=== PATIENT | female | born 1975 | race Caucasian/White ===

== ENCOUNTER → 2020-09-21 15:20 | Outpatient (CLI) | payer OTHER, SELFPAY ==
[2015-04-20 11:37] VITALS: BMI 35.6
[2020-09-24 20:19] LABS: HPV APTIMA, High Risk Negative (Negative)
== END ==
PROVIDERS: PCP Physician Assistant; Visit Provider Student in an Organized Health Care Education/Training Program
DX: Z12.4 Encounter for screening for malignant neoplasm of cervix (principal)
CPT/HCPCS: 87624; 88175; G0145

== ENCOUNTER 2023-05-07 09:36 | Day surgery (SDC) | payer OTHER, SELFPAY ==
--- NOTE | 2023-05-07 | IMM_PTH ---
PATIENT: JOLEEN BURNETTE LOC: EN U#:[id number] AGE/SX: 47/F ROOM: RE05/07/[address]: Dr. Chelsy Peck MD : 1975 BED: DIS: 05/07/2023 SPEC #: [id number] RECD: 05/09/23 14:56 STATUS: DON REQ #: [id number] RICK: 05/07/23 00:[address]: Chelsy Peck DEPT: IMMUNOHISTOCHEMISTRY RECD BY: Alcira Frost ENTERED: 05/09/23 14:57 SP TYPE: IMMUNO OTHR DR: Sloane Hernández PA-C Tissues: Sigmoid colon biopsy Procedures: SMA (add) DESMIN (add) KI-67 (add) P53 (add) Vimentin (add) SMM (add) Pankeratin (initial) S-100 (add) PHYSICIAN & INSTITUTION [place] [address] SPECIMEN INFORMATION: Tissue Source: Sigmoid polyp Clinical Info: Screening Specimen Number: [id number] CPT code: 06764, 18828 x7 METHODOLOGY: Deparaffinized sections of prefer/formalin-fixed tissue or PAP/DQ stained slides are incubated with monoclonal/polyclonal antibodies/oligonucleotide probes. Localization is made via biotin free immunoperoxidase method. Appropriate controls are performed and reacted as expected. Results on target cell population are indicated in the following table: RESULTS: ANTIBODY / CLONE RESULT AE1-3 (AE1/AE3/PCK26) negative Vimentin (V9) negative Actin (1A4) positive Myosin (simms1) positive Desmin (CE-R-11) positive S-100 (4C4.9) negative P53 (DO-7) negative (null pattern) Ki-67 (30-9) negative These tests were developed and their performance characteristics determined by [facility]. They may not have been cleared or approved by the U.S. Food and Drug Administration. The FDA has determined that such clearance or approval is not necessary. The above immunohistochemical/dualISH markers are ordered and reviewed by the Pathologist. INTERPRETATION: Sigmoid polyp, biopsy: Mucosal leiomyoma AM/bl 05/10/23
--- NOTE | 2023-05-07 10:03 | HP.PCM_ITS ---
[facility] - General General Date of Service: 05/07/23 HPI Narrative JOLEEN BURNETTE, is a 47 F who presents for screening colonoscopy. Patient's never had previous colonoscopy. Patient denies any immediate family history of colon cancer. Patient denies any chronic abdominal pain/nausea/vomiting. Patient is on omeprazole 40 mg p.o. daily for burping otherwise denies other reflux symptoms. Patient states initially did work better than it does currently. Patient was initially put on during the summer which she took to occasionally for the last 2 weeks she has been taking it more regularly. Patient has bowel movements about every other day denies any blood. [facility] Medical History (Updated 05/02/23 @ 09:45 by Isabel Yousif) Acid reflux Anxiety and depression Depression Former smoker Insomnia, unspecified Thyroid disease Home Medications aluminum chloride 20 % topical solution (Drysol Dab-O-Matic) 1 applic topical QWEEK PRN excessive sweating 04/30/23 [History Last Taken Unknown] bupropion HCl 100 mg tablet 150 mg PO BID 04/30/23 [History Last Taken Unknown] epinephrine 0.3 mg/0.3 mL injection, auto-injector 0.3 mg IM ONCE PRN anaphylaxis 04/30/23 [History Last Taken Unknown] omeprazole 40 mg capsule,delayed release 40 mg PO DAILY PRN GERD 04/30/23 [History Last Taken Unknown] testosterone 10 mg/0.5 gram/actuation transdermal gel pump 1 pump transdermal QAM 04/30/23 [History Last Taken Unknown] thyroid (pork) 15 mg tablet ([employer] Thyroid) 15 mg PO DAILY 04/30/23 [History Last Taken Unknown] Allergy/AdvReac Type Severity Reaction Status Date / Time bee venom protein (honey bee) Allergy Severe Anaphylaxis Verified 05/02/23 09:36 hydrocodone bitartrate AdvReac Vomiting Verified 05/02/23 09:36 [From Vicodin] Family History (Updated 04/30/23 @ 11:56 by Cristina Perez) Father Cancer Surgical History (Updated 05/02/23 @ 09:45 by Isabel Yousif) History of release of tendon Hx of abdominal hysterectomy Hx of breast reduction, elective Hx of section Hx of left knee surgery Social History (Updated 04/30/23 @ 11:57 by Cristina Perez) current occupational status: employed Smoking Status: Former smoker alcohol intake: current alcohol intake frequency: holidays/special occasions only Past Medical/Surgical History Planned Operation Planned Operative Procedure/s: CSCOPE S.O.S: No Previous Hospitalizations/Surgeries HX Hospitalizations: No HX of Surgeries: L FOOT X2 HYSTERECTOMY PANKAJ BREAST REDUCTION T&A Any Problems With Anesthesia: No You/Your Family Experience Fever (Hyperthermia) With Anes: No Cholinesterase deficiency: No Cardiovascular Hx Chest Pain within Last 2 months: No Hx of Irregular Heartbeat and/or Afib: No Hx Heart Attack: No Hx Congestive Heart Failure: No Hx Rheumatic Fever: No Hx Hypertension: No Hx Internal Defibrillator: No Hx Pacemaker: No Hx Cardiac Catheterization: No Hx Cardiac Surgery/Stents/Etc.: No Hx Stress Test: No Hx Pain in Legs when Walking/Leg Cramps: No Respiratory Chronic Cough: No HX of Shortness of Breath: No Hoarseness: No Hx Chronic Obstructive Pulmonary Disease (COPD): No Hx Asthma: No Hx Emphysema: No Hx Sleep Apnea: No Hx Respiratory Tract Infection/Cold (presently): No Do You Snore Loudly (louder than talking or can be heard): No Do You Often Feel Tired/ Fatigued/ Sleepy Dring Daytime?: No Has Anyone Observed You Stop Breathing During Sleep?: No Result (for STOP score): Negative Hx Smoking: Yes Smoking Status: Former smoker Gastrointestinal Hx Gastrointestinal Disorders: No Hx Gastrointestinal Bleed: No Hx Ulcer: No Hx Hiatal Hernia: No Difficulty Chewing/Swallowing: No Special diet followed at home: No Hx Unplanned Weight Loss of 20#: No HX Unplanned Weight Gain of 20#: No Neurological Hx Seizures: No HX Syncope/Blackout Spells/Unconsciousness: No Hx Transient Ischemic Attacks (TIA): No Hx Multiple Sclerosis: No Hx Parkinson's Disease: No Hx Head/Neck Injury: No Hx Headaches: Yes Hx Back Injury/Pain: No Recent Onset of Speech Difficulty: No Restless Legs: No Does patient have nerve stimulator: No Blood Disorder Hx Leukemia: No Bleeding Tendencies: No Hx Deep Vein Thrombosis: No Hx High Cholesterol: No Blood Transmitted Disease: No Hx Hepatitis: No Hx Cirrhosis: No Hx Anemia: No Hx Blood Disorders: No Reproduction Is Patient Lactating: No Hx Hysterectomy: Yes Hx Tubal Ligation: No Are You Post Menopause: No Genitourinary Hx Renal Disease: Yes (KIDNEY STONES) Musculoskeletal Hx Arthritis: No Hx Rheumatoid Arthritis: No Hx Gout: No Recent Onset of an Orthopedic Problem: Yes (L KNEE, FELL & DISLOCATED) Endocrine Hx Diabetes: No Thyroid Disease: No Hx Steroid Therapy: No Psycho/Social Hx Substance Use: No Hx Alcohol Use: No Hx Anxiety: No Hx Depression: No Mental Illness: No Hx Dementia: No Miscellaneous Hx Cancer: No Recent Exposure to Contagious Disease: No Hx of C-Diff: No Any Loose Teeth: No Allergies bee venom protein (honey bee) Allergy (Severe, Verified 05/02/23 09:36) Anaphylaxis ALL BEES,HORNETS hydrocodone bitartrate [From Vicodin] Adverse Reaction (Verified 05/02/23 09:36) Vomiting Discharge Is Pt Admitted From a Half-Way, or a Care Home: No After D/C, Where Do you Plan to Go: Return Home Physical Exam Const alert, oriented x3 and no apparent distress HEENT normocephalic and head/scalp atraumatic Resp normal respiratory effort Cardio regular rate GI soft to palpation and non-tender; Negative for non-distended Palpation: Negative for guarding Extremity no clubbing, cyanosis or edema Skin no rashes or lesions noted Neuro CN's II-XII intact bilaterally Psych mental status grossly normal Assessment & Plan Assessment/Plan (1) Encounter for screening for malignant neoplasm of colon: Surgery Risks - Colonoscopy I discussed with the patient the risks of the procedure: Yes Risks Include but are not Limited To: Risks include but are not limited to: Bleeding, perforation requiring further surgery, inability to complete colonoscopy requiring barium enema.
[2023-05-07 10:06] VITALS: BP 115/70; PULSE 76; RESP 12; TEMP 36.6; O2SAT 99; BMI 29.5
[2023-05-07] MEDS: Lactated Ringers 1,000 ML 15 ML IV (10:15)
--- NOTE | 2023-05-07 11:00 | COLBX_PTH ---
PATIENT: JOLEEN BURNETTE LOC: EN U#:[id number] AGE/SX: 47/F ROOM: RE05/07/[address]: Dr. Chelsy Peck MD : 1975 BED: DIS: 05/07/2023 SPEC #: [id number] RECD: 05/07/23 14:01 STATUS: DON REIsma #: [id number] RICK: 05/07/23 11:[address]: Chelsy Peck DEPT: SURGICAL PATHOLOGY RECD BY: Roberta Woo ENTERED: 05/08/23 09:04 SP TYPE: COLON BX OTHR DR: Sloane Hernández PA-C Tissues: Sigmoid colon biopsy Procedures: Surgery Specimen Level IV HEADER OPERATION: Colonoscopy - open access, biopsy PRE-OP DIAGNOSIS: Screening TISSUE SUBMITTED: Sigmoid polyp biopsy MICROSCOPIC DIAGNOSIS Sigmoid colon polyp, biopsy: Mucosal leiomyoma. See comment. AM:tyrone 05/09/2023 COMMENT Immunohistochemistry ([id number]) supports the above diagnosis. Case has been reviewed in consultation with Dr. Mirza who concurs with the above diagnosis. IDC:SAULO MICROSCOPIC DESCRIPTION Slides are reviewed. GROSS DESCRIPTION Received in fixative is one container labeled with the patient's name and designated sigmoid polyp biopsy. The specimen consists of one irregular fragment of light salvador soft tissue that measures 0.3 x 0.2 x 0.1 cm. The specimen is totally submitted in one cassette. / SAULO:tyrone 05/08/2023 TC:3 CPT: 48965
[2023-05-07 11:05] VITALS: BP 115/70; BP 87/47; PULSE 72; RESP 16; TEMP 36.5; O2SAT 100
--- NOTE | 2023-05-07 11:07 | OP.CCLET_ITS ---
05/07/2023 [facility] Re : Colonoscopy procedure for Rehana Hernández This procedure was performed on Sunday, May 07, 2023. My impressions and recommendations are as follows: Impressions : - Hemorrhoids found on perianal exam. - Non-bleeding internal hemorrhoids. - One less than 5 mm polyp in the sigmoid colon, removed with a cold biopsy forceps. Resected and retrieved. - The examination was otherwise normal. - Diverticulosis in the sigmoid colon and in the ascending colon. Recommendations : - Discharge patient to home. - High fiber diet. - Continue present medications. - Await pathology results. - Repeat colonoscopy in 5 years for surveillance based on pathology results. My findings are described in the full procedure note, which is enclosed. If I can be of further assistance, please feel free to contact me at Doctor phone number(s): , Work: . Sincerely, MD Chelsy Bahena MD 05/07/2023 11:06:49 AM This report has been signed electronically.
--- NOTE | 2023-05-07 11:07 | OP.COLON_ITS ---
Patient Name: Rehana Yepez Procedure Date: 05/07/2023 10:31 AM Date of : 1975 Age: 47 Procedure: Colonoscopy Indications: Screening for colorectal malignant neoplasm Providers: Chelsy Peck MD Referring MD: Chelsy Peck MD Medicines: Monitored Anesthesia Care Patient Profile: This is a 47 year old female. Last Colonoscopy: none. The patient's first colonoscopy is today. Complications: No immediate complications. Procedure: Pre-Anesthesia Assessment: - Prior to the procedure, a History and Physical was performed, and patient medications and allergies were reviewed. The patient's tolerance of previous anesthesia was also reviewed. The risks and benefits of the procedure and the sedation options and risks were discussed with the patient. All questions were answered, and informed consent was obtained. Prior Anticoagulants: The patient has taken no anticoagulant or antiplatelet agents. ASA Grade Assessment: Per anesthesia. After reviewing the risks and benefits, the patient was deemed in satisfactory condition to undergo the procedure. After I obtained informed consent, the scope was passed under direct vision. Throughout the procedure, the patient's blood pressure, pulse, and oxygen saturations were monitored continuously. The Colonoscope was introduced through the anus and advanced to the cecum, identified by appendiceal orifice and ileocecal valve. The colonoscopy was technically difficult and complex due to a tortuous colon. The patient tolerated the procedure well. The quality of the bowel preparation was good. Scope In: 10:41:01 AM Scope Withdrawal Time 0 hours 10 minutes 31 seconds Scope Out: 11:00:55 AM Total Procedure Duration Time 0 hours 19 minutes 54 seconds Findings: Hemorrhoids were found on perianal exam. Non-bleeding internal hemorrhoids were found. The hemorrhoids were Grade I (internal hemorrhoids that do not prolapse). A less than 5 mm polyp was found in the sigmoid colon. The polyp was sessile. The polyp was removed with a cold biopsy forceps. Resection and retrieval were complete. The exam was otherwise without abnormality. Scattered small-mouthed diverticula were found in the sigmoid colon and ascending colon. Impression: - Hemorrhoids found on perianal exam. - Non-bleeding internal hemorrhoids. - One less than 5 mm polyp in the sigmoid colon, removed with a cold biopsy forceps. Resected and retrieved. - The examination was otherwise normal. - Diverticulosis in the sigmoid colon and in the ascending colon. Recommendation: - Discharge patient to home. - High fiber diet. - Continue present medications. - Await pathology results. - Repeat colonoscopy in 5 years for surveillance based on pathology results. Procedure Code(s): --- Professional --- 75246, PT, Colonoscopy, flexible; with biopsy, single or multiple Diagnosis Code(s): --- Professional --- Z12.11, Encounter for screening for malignant neoplasm of colon K64.0, First degree hemorrhoids D12.5, Benign neoplasm of sigmoid colon K57.30, Diverticulosis of large intestine without perforation or abscess without bleeding CPT copyright 2021 [employer]. All rights reserved. The codes documented in this report are preliminary and upon massotherapist review may be revised to meet current compliance requirements. MD Chelsy Bahena MD 05/07/2023 11:06:49 AM This report has been signed electronically. Number of Addenda: 0 Note Initiated On: 05/07/2023 10:31 AM
[2023-05-07 11:10] VITALS: BP 115/70; BP 91/54; PULSE 65; RESP 16; O2SAT 100
[2023-05-07 11:15] VITALS: BP 115/70; BP 98/61; PULSE 65; RESP 16; O2SAT 100
[2023-05-07 11:20] VITALS: BP 115/70; BP 120/89; PULSE 72; RESP 16; TEMP 36.6; O2SAT 100
[2023-05-07 11:54] VITALS: BP 115/70
== END 2023-05-07 12:01 | disposition home or self-care (01) ==
LOC: EN 09:38 → AC 09:39
PROVIDERS: PCP Family Medicine; Referring Provider Family Medicine; Visit Provider Surgery
PROC: 0DJD8ZZ Inspection of Lower Intestinal Tract, Via Natural or Artificial Opening Endoscopic (ICD-10-PCS; CPT 45378; principal; 2023-05-07 10:55)
DX: Z12.11 Encounter for screening for malignant neoplasm of colon (principal); K57.30 Diverticulosis of large intestine without perforation or abscess without bleeding; Z87.891 Personal history of nicotine dependence; K64.0 First degree hemorrhoids; K64.4 Residual hemorrhoidal skin tags; D12.5 Benign neoplasm of sigmoid colon; K21.9 Gastro-esophageal reflux disease without esophagitis; Z79.899 Other long term (current) drug therapy; E07.9 Disorder of thyroid, unspecified; Z79.890 Hormone replacement therapy; F32.A Depression, unspecified
CPT/HCPCS: 45380; 88305; 88341; 88342; J7120; J2405

== ENCOUNTER → 2023-07-20 | Outpatient (CLI) | payer OTHER, SELFPAY ==
--- NOTE | 2023-07-20 07:27 | US_ITS ---
STUDY: ABDOMINAL ULTRASOUND - RIGHT UPPER QUADRANT REASON FOR VISIT: Female, 47 years old . Several month history of right upper quadrant pain. TECHNIQUE: Ultrasound evaluation of the right upper quadrant was performed with real-time and static michelle-scale imaging. TECHNICAL QUALITY: Adequate. COMPARISON: None. FINDINGS: Liver: The liver measures 14.6 cm. There is normal echogenicity of the liver. The bile ducts are within normal limits. There is hepatic color flow. The direction of portal flow is hepatopetal. There is no demonstrated mass lesion. Gallbladder: Normal distended gallbladder. The gallbladder wall measures 2 mm. There is a negative sonographic Jiang''s sign. There is no pericholecystic fluid. There are no gallstones. Common Bile Duct (C.B.D.): The common bile duct measures 6 mm. Pancreas: Normal size of the head, body and tail of the pancreas. There is normal echogenicity of the pancreas. There is no demonstrated pancreatic mass or cyst. Right Kidney: Normal size of the right kidney. The right kidney measures 10.6 cm x 5.5 cm x 5.7 cm. Normal renal cortex. The right cortex measures 1.6 cm. There is no demonstrated renal mass or cyst. There is no right hydronephrosis. US/Abdomen Limited IMPRESSION: Normal right upper quadrant ultrasound examination. Electronically Signed: Rory Moise MD at 9:58 EST ,
--- OUTSIDE RECORDS SUMMARY | 2023-07-20 07:50 | XMS RPT_ITS | CCD ---
Author Name Unknown Address [email or web address] [place] [address] Organization [facility] Care Team Providers Care Trimming Machine Operator Name Role Phone Juju Bonilla Primary Care Provider [phone] Anatoliy Ponce Primary Care Provider Anatoliy Hernández PA-C Primary Care Provider [phone] IRENE BUTTONHOLE FACER-COORDINATOR OF HEALTH SERVICESJUJU Primary Care Physicia n STANDARD PROCESSING Attending Unavailable [employer] Consulting Unavailable ANATOLIY HERNÁNDEZ PA-C Primary Care Physician PROVIDER, UNKNOWN Attending Unavailable ANATOLIY HERNÁNDEZ PA-C Primary Care Unavailable ANATOLIY HERNÁNDEZ PA-C Primary Care Unavailable POPEYE PELAEZ, ANATOLIY Attending Unavailable ANATOLIY HERNÁNDEZ PA-C Primary Care Unavailable PROVIDER, UNKNOWN Attending Unavailable ANATOLIY HERNÁNDEZ PA-C Primary Care Unavailable ANATOLIY HERNÁNDEZ PA-C Attending Unavailable RANDOLPH ANATOLIY PELAEZ Primary Care Unavailable PROVIDER, UNKNOWN Attending Unavailable Allergies Allergy Classification Reported Allergen(s) Allergy Type Date of Onset Reaction(s) Facility (1 source) HYDROcodone Drug Allergy 04-14-2015 [facility] Medications Current Medications Medication Drug Class(es) Dates Sig (Normalized) Sig (Original) acetaminophen 325 mg / oxyCODONE hydrochloride 5 mg oral tablet (1 source) Opioid Agonist Start: 06-13-2019 End: 06-20-2019 take 1 tablet by mouth every eight hours as needed for pain oxyCODONE-acetamino phen (PERCOCET) 5-325 MG per tablet Indications: Post-op pain , Other synovitis and tenosynovitis, left hand Take 1 tablet by mouth every 8 hours as needed for Pain for up to 7 days. 20 tablet 0 06/13/2019 06/20/2019 Active calcium chloride 0.0014 meq/ml / potassium chloride 0.004 meq/ml / sodium chloride 0.103 meq/ml / sodium lactate 0.028 meq/ml injectable solution (1 source) Start: 06-13-2019 lactated ringers infusion 1 ml diphenhydrAMINE hydrochloride 50 mg/ml cartridge (1 source) Histamine-1 Receptor Antagonist Start: 06-13-2019 End: 06-13-2019 diphenhydrAMINE (BENADRYL) injection 12.5 mg 2 ml fentaNYL 0.05 mg/ml injection (1 source) Opioid Agonist Start: 06-13-2019 fentaNYL (SUBLIMAZE) injection 100 mcg fluticasone propionate 0.05 mg/actuat metered dose nasal spray (1 source) Corticosteroid Start: 12-28-2015 take 1 spray(s) nasal route twice daily fluticasone (FLONASE) 50 MCG/ACT nasal spray SPRAY 1 SPRAY IN EACH NOSTRIL TWICE DAILY 0 12/28/2015 Active 1 ml hydrALAZINE hydrochloride 20 mg/ml injection (1 source) Arteriolar Vasodilator Start: 06-13-2019 hydrALAZINE (APRESOLINE) injection 5 mg 1 ml HYDROmorphone hydrochloride 1 mg/ml cartridge (4 sources) Opioid Agonist Start: 06-13-2019 HYDROmorphone (DILAUDID) injection 1 mg Completed/Discontinued Medications Medication Drug Class(es) Dates Sig (Normalized) Sig (Original) acetaminophen 500 mg oral tablet (1 source) Start: 06-13-2019 End: 06-13-2019 acetaminophen (TYLENOL) tablet 1,000 mg ALPRAZolam 0.5 mg oral tablet (3 sources) Benzodiazepine Start: 07-20-2020 ALPRAZolam (XANAX) 0.5 mg tablet TAKE 2 TABLETS BY MOUTH BEFORE BED. 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 Other nutritional; endocrine; and metabolic disorders (2 sources) Weight gain 05-23-2022 Episodic Residual codes; unclassified (2 sources) Flushing 05-23-2022 Episodic Thyroid disorders (1 source) Hypothyroidism; Translations: [Other specified hypothyroidism] Chronic Past or Other Problems Problem Classification Problem Date Documented Date Episodic/Chronic Other connective tissue disease (2 sources) Synovitis/tenosynovi tis - hand Onset: 03-24-2019 Episodic Other nervous system disorders (1 source) Postoperative pain Episodic Other screening for suspected conditions (not mental disorders or infectious disease) (2 sources) Encounter for screening mammogram for malignant neoplasm of breast; Translations: [Encounter for screening mammogram for malignant neoplasm of breast] Onset: 02-26-2023 Episodic Other skin disorders (3 sources) Excessive sweating; Translations: [Generalized hyperhidrosis] Onset: 08-02-2020 08-02-2020 Episodic Residual codes; unclassified (3 sources) Insomnia; Translations: [Insomnia, unspecified] Onset: 08-02-2020 08-02-2020 Episodic Results Test Name Value Interpretation Reference Range Facil ity Vital Signs Date Time Vital Sign Value Performing Clinician Faci [facility] 01-25-2022 14:30-0400 Diastolic blood pressure 78 mm[Hg] DR HANNY MATTSON MD [facility] 01-25-2022 14:30-0400 Heart rate 106 /min DR HANNY MATTSON MD [facility] 01-25-2022 14:30-0400 Respiratory rate 20 /min DR HANNY MATTSON MD [facility] 01-25-2022 14:30-0400 Systolic blood pressure 126 mm[Hg] DR HANNY MATTSON MD [facility] 01-25-2022 12:36-0400 Body temperature 98.6 [degF] DR HANNY MATTSON MD [facility] 01-25-2022 12:36-0400 Diastolic blood pressure 77 mm[Hg] DR HANNY MATTSON MD [facility] 01-25-2022 12:36-0400 Heart rate 112 /min DR HANNY MATTSON MD [facility] 01-25-2022 12:36-0400 Respiratory rate 22 /min DR HANNY MATTSON MD [facility] 01-25-2022 12:36-0400 Systolic blood pressure 134 mm[Hg] DR HANNY MATTSON MD [facility] 06-13-2019 08:57-0500 Diastolic blood pressure 72 mm[Hg] Douglas Muñoz MD Work Phone: [facility] Work Phone: 06-13-2019 08:57-0500 Heart rate 79 /min Douglas Muñoz MD Work Phone: [facility] Work Phone: 06-13-2019 08:57-0500 Respiratory rate 13 /min Douglas Muñoz MD Work Phone: [facility] Work Phone: 06-13-2019 08:57-0500 SaO2% (BldA) [Mass fraction] 97 % Douglas Muñoz MD Work Phone: [facility] Work Phone: 06-13-2019 08:57-0500 Systolic blood pressure 110 mm[Hg] Douglas Muñoz MD Work Phone: [facility] Work Phone: 06-13-2019 08:27-0500 Body temperature 97.5 [degF] Douglas Muñoz MD Work Phone: [facility] Work Phone: 06-13-2019 06:27-0500 Body height 162.6 cm Douglas Muñoz MD Work Phone: [facility] Work Phone: 06-13-2019 06:27-0500 Body mass index (BMI) [Ratio] 35.17 kg/m2 Douglas Muñoz MD Work Phone: [facility] Work Phone: 06-13-2019 06:27-0500 Body weight 92.94 kg Douglas Muñoz MD Work Phone: [facility] Work Phone: Encounters Encounter Date Encounter Type Care Provider Facility Start: 06-06-2023 End: 06-07-2023 ambulatory [facility] Facility:B Start: 06-06-2023 End: 06-06-2023 Patient encounter procedure CATINA WOODS BUTTONHOLE FACER[facility] Start: 02-26-2023 End: 02-27-2023 ambulatory [facility] Facility:B Start: 02-07-2023 End: 02-08-2023 ambulatory [facility] Facility:B Start: 09-06-2022 End: 09-07-2022 ambulatory UNKNOWN PROVIDER Facility:B Start: 09-06-2022 End: 09-06-2022 Patient encounter procedure CATINA WOODS BUTTONHOLE FACER[facility] Start: 04-11-2022 ambulatory STANDARD PROCESSING [facility] Start: 01-25-2022 End: 01-25-2022 Emergency department patient visit DR HANNY MATTSON MD [facility] Start: 12-09-2021 Documentation procedure Mammog sharif Coordinator [facility] Start: 12-09-2021 Letter encounter Mammography Coordinator [facility] Department Start: 12-09-2021 End: 12-09-2021 Subsequent hospital visit by physician Screen Mammo [facility] Mammogram Start: 08-22-2021 E-mail encounter fro m caregiver Mega Garvey MD Work Phone: [facility] Start: 08-22-2021 Follow-up encounter Mega cisse MD Work Phone: General Surgery Procedures Date Procedure Procedure Detail Performing Clinician Start: 12-09-2021 QUINTON SCREENING W NEGRO Cc f Provider Start: 12-09-2021 Mammography Screen Wst r Start: 10-29-2018 Wrist region structu re (body structure) DR HANNY MATTSON MD Plan of Treatment Date Care Activity Detail Author Start: 12-09-2022 Mammography MAMMOGRAM [facility] Start: 01-19-2022 Influenza vaccination [facility] Start: 2021 COLOGUARD (FIT-DNA) COLOGUARD (FIT-DNA) [facility] Start: 2021 Colonoscopy COLONOSCOPY [facility] Start: 2021 COLORECTAL CANCER SCREENING COLORECTAL CANCER SCREENING [facility] Start: [address] COLONOGRAPHY [facility] Start: 2021 DIABETES SCREEN DIABETES SCREEN [facility] Start: 2021 FECAL OCCULT BLOOD FECAL OCCULT BLOOD [facility] Start: 2021 LIPID SCREEN LIPID SCREEN [facility] Start: 2021 SIGMOIDOSCOPY SIGMOIDOSCOPY [facility] Start: 04-19-2021 COVID-19 VACCINE (3 - Booster for Moderna series) COVID-19 VACCINE (3 - Booster for Moderna series) [facility] Start: 06-23-2019 End: 06-23-2019 Patient encounter procedure 06/23/2019 Office Visit Orthopedic Surgery Savannah Solitario PA [address] [facility] [address] [place] [address] [phone] [facility] [place] Start: 01-19-2019 Influenza vaccination Flu vaccine (#1) [facility] Work Phone: Start: 2016 Diabetes screen Diabetes screen [facility] Work Phone: Start: 2016 Lipid screen Lipid screen [facility] Work Phone: Start: 2016 Mammography MAMMOGRAM [facility] Start: 2006 HPV TESTING HPV TESTING [facility] Start: 1997 Cervical cancer screen Cervical cancer screen [facility] Work Phone: Start: 1997 PAP TESTING PAP TESTING [facility] Start: 11-21-1995 Urine microalbumin profile DTAP,TDAP,TD (1 - Tdap) [facility] Start: 1994 HEPATITIS C SCREENING HEPATITIS C SCREENING [facility] Start: 1994 HIV SCREENING HIV SCREENING [facility] Start: 11-21-1991 HIV screen HIV screen [facility] Work Phone: Start: 1988 Adult depression screening assessment DEPRESSION SCREENING [facility] Start: 11-21-1987 DTaP/Tdap/Td vaccine (1 - Tdap) DTaP/Tdap/Td vaccine (1 - Tdap) [facility] Work Phone: Incentive spirometry Incentive s pirometry Respiratory Care Routine Q1H PRN until discontinued starting 06/13/2019 [facility] Work Phone: Immunizations Immunization Date Immunization Notes Care Provider [facility] 11-17-2020 COVID-19, mRNA, LNP- S, PF, 100 mcg or 50 mcg dose; Translations: [Moderna COVID-19 Vaccine] DR HANNY MATTSON MD [facility] 10-20-2020 COVID-19, mRNA, LNP- S, PF, 100 mcg or 50 mcg dose; Translations: [Moderna COVID-19 Vaccine] DR HANNY MATTSON MD [facility] Payers Date Payer Category Payer Unknown [id number] 2020 Unknown MMO MMO [employer] [id number] 2020-Present [phone] [address] [place] [address] PPO [id number] 2011 Unknown 1 888 [place] [employer] 1 [address] [place] [employer] xxxxxxxx 2011-Present [phone] [address] [place] [address] xxxxxxxx [id number] 1976 Unknown [id number] 1976 Unknown [id number] 1976 Unknown [id number] 1976 Unknown [id number] 1976 Unknown [id number] Social History Date Type Detail Facility Start: 10-22-2018 End: 06-13-2019 Tobacco smoking status NHIS Former smoker [facility] Start: 06-13-2019 Alcohol intake Current drinke r of alcohol (finding) [facility] Work Phone: Start: 06-13-2019 Alcohol Comment occasionally [facility] Work Phone: Start: 1975 Sex Assigned At Not on file S [employer] Work Phone: End: 08-02-2017 History of tobacco use Current smoker [facility] Start: 08-02-2020 Cigarettes smoked current (pack per day) - Reported 0.5 [facility] Start: 08-02-2020 Tobacco use and exposure Smokeless tobacco non-user [facility] Start: 2021 End: 11-30-2021 Exposure to SARS-CoV-2 (event) Not sure [facility] Sex Assigned At Female [facility] Functional Status Date Assessment Result Facility 01-25-2022 Functional Status Standard Safet y ID band on, Call device within reach, Bed in low position, Wheels locked, Upper/Half-Length side-rails up, Bedside Cart Locked, Safety level maintained [facility] Mental Status Date Assessment Result Facility 01-25-2022 Mental Status Orientation Oriented x 4 [facility] Clinical Notes 06-13-2019 to 01-25-2022 Letter - Mammography Coordinator - 12/09/2021 1:09 PM RT [place](R) - 12/09/2021 10:50 AM Rosina Donald RN - 06/13/2019 8:56 AM ESTCiRosina hernandez RN - 06/13/2019 8:27 AM EST Note Date & Type Note Facility 01-25-2022 Note Discharge Instructions Thank you for allowing [facility] to assist you with your healthcare needs. The following is important discharge information regarding your hospital visit. Diagnosis from Today's Visit Bee sting What to Do Next Instructions from Your Care Team No qualifying data available. Post Acute Orders No qualifying data available. You Need to Schedule the Following Appointments Follow Up with JUJU BONILLA When Within 2-4 days Where: [address] [facility] [place] [address]- [phone] Allergies NKA Medications Please ask your primary doctor or pharmacist before taking any other medication not listed, including over the counter drugs, herbal medications, vitamins and or supplements as they may interact with your home medications. What How Much When Instructions Last Dose New EPINEPHrine (EpiPen 2-Wayne 0.3 mg injectable kit) 0.3 Milligram Intramuscular As Directed as needed for Allergic reaction Printed Prescription Please take this list to your next doctor s visit. Bring all medications you take, including over the counter medications, herbals and other supplements with you to your doctor s visit. Patients and families are reminded to discard old lists and to update any records with all medication providers or retail pharmacies. Medication Leaflets epinephrine injection (EP i BRENDA rin) Adrenalin, Auvi-Q, Epinephrinesnap-EMS, Epinephrinesnap-V, EpiPen 2-Wayne, EpiPen JR 2-Wayne, EPIsnap, Symjepi What is the most important information I should know about epinephrine injection? Seek emergency medical attention after any use of epinephrine to treat a severe allergic reaction. After the injection you will need to receive further treatment and observation. What is epinephrine injection? Epinephrine injection is used to treat severe allergic reactions (anaphylaxis) to insect stings or bites, foods, drugs, and other allergens. Epinephrine auto-injectors may be kept on hand for self-injection by a person with a history of severe allergic reaction. Epinephrine is also used to treat exercise-induced anaphylaxis, or to treat low blood pressure that is caused by septic shock. Epinephrine injection may also be used for purposes not listed in this medication guide. What should I discuss with my healthcare provider before using epinephrine injection? Before using epinephrine, tell your doctor if any past use of this medicine caused an allergic reaction to get worse. Tell your doctor if you have ever had: heart disease or high blood pressure; asthma; Parkinson's disease; depression or mental illness; a thyroid disorder; or diabetes. Having an allergic reaction while or nursing could harm both mother and baby. You may need to use epinephrine during or while you are . Seek emergency medical attention right away after using the injection. If possible during an emergency, tell your medical caregivers if you are or . How should I use epinephrine injection? Follow all directions on your prescription label and read all medication guides or instruction sheets. Use the medicine exactly as directed. Epinephrine is injected into the skin or muscle of your outer thigh. In an emergency, this injection can be given through your clothing. This medicine may come with a 'equestrian trainer pen.' The equestrian trainer pen contains no medicine and no needle. It is only for non-emergency use to practice giving yourself an epinephrine injection. Read and follow all Instructions for Use. Ask your doctor or pharmacist if you need help. Do not give this medicine to a child without medical advice. The auto-injector device is a disposable single-use system. Use an auto-injector only one time. Do not try to reinsert an auto-injector a second time. If the needle is bent from the first use, it may cause serious injury to your skin. Seek emergency medical attention after any use of epinephrine. The effects of epinephrine may wear off after 10 or 20 minutes. You will need to receive further treatment and observation. Also seek emergency medical attention if you accidentally inject yourself while giving epinephrine to another person. Store at room temperature away from moisture, heat, and light. Do not refrigerate or freeze this medicine, and do not store it in a car. Do not use epinephrine injection if it has changed colors or has particles in it. Do not use if the expiration date on the label has passed. Call your pharmacist for a new prescription. Do not reuse a needle or syringe. Place them in a puncture-proof 'sharps' container and dispose of it following state or local laws. Keep out of the reach of children and pets. What happens if I miss a dose? Since epinephrine is used when needed, it does not have a daily dosing schedule. What happens if I overdose? Seek emergency medical attention or call the Poison Help line at . Overdose symptoms may include numbness or weakness, severe headache, blurred vision, pounding in your neck or ears, sweating, chills, chest pain, fast or slow heartbeats, severe shortness of breath, or cough with foamy mucus. What should I avoid while using epinephrine injection? Do not inject epinephrine into a vein or into the muscles of your buttocks, or it may not work as well. Inject it only into the fleshy outer portion of the thigh. Accidentally injecting epinephrine into your hands or feet may result in a loss of blood flow to those areas, and resulting numbness. What are the possible side effects of epinephrine injection? Before using epinephrine, tell your doctor if any past use of this medicine caused an allergic reaction to get worse. Call your doctor at once if you notice pain, swelling, warmth, redness, or other signs of infection around the area where you gave an injection. Side effects may be more likely in older adults. Common side effects may include: breathing problems; fast, irregular, or pounding heartbeats; pale skin, sweating; nausea and vomiting; dizziness; weakness or tremors; headache; or feeling restless, fearful, nervous, anxious, or excited. This is not a complete list of side effects and others may occur. Call your doctor for medical advice about side effects. You may report side effects to FDA at 5-127-WWH-0975. What other drugs will affect epinephrine injection? Tell your doctor about all your other medicines, especially: asthma medicine; an antidepressant; cold or allergy medicine (Benadryl and others); heart or blood pressure medicine; thyroid medication; or ergot medicine--dihydroergotamine, ergotamine, ergonovine, methylergonovine. This list is not complete. Other drugs may affect epinephrine, including prescription and iupy-tot-crljtaw medicines, vitamins, and herbal products. Not all possible drug interactions are listed here. Where can I get more information? Your doctor or pharmacist can provide more information about epinephrine injection. Remember, keep this and all other medicines out of the reach of children, never share your medicines with others, and use this medication only for the indication prescribed. Every effort has been made to ensure that the information provided by [employer]') is accurate, up-to-date, and complete, but no guarantee is made to that effect. Drug information contained herein may be time sensitive. [employer] information has been compiled for use by healthcare practitioners and consumers in the [place] and therefore [employer] does not warrant that uses outside of the [place] are appropriate, unless specifically indicated otherwise. [employer] drug information does not endorse drugs, diagnose patients or recommend therapy. [employer] drug information is an informational resource designed to assist licensed healthcare practitioners in caring for their patients and/or to serve consumers viewing this service as a supplement to, and not a substitute for, the expertise, skill, knowledge and judgment of healthcare practitioners. The absence of a warning for a given drug or drug combination in no way should be construed to indicate that the drug or drug combination is safe, effective or appropriate for any given patient. [employer] does not assume any responsibility for any aspect of healthcare administered with the aid of information [employer] provides. The information contained herein is not intended to cover all possible uses, directions, precautions, warnings, drug interactions, allergic reactions, or adverse effects. If you have questions about the drugs you are taking, check with your doctor, nurse or pharmacist. Copyright 5968-4479 [employer] Version: 15.. Revision Date: 01/14/2021. Education Materials Epinephrine injection (Auto-injector) What is this medicine? EPINEPHRINE (ep i BRENDA rin) is used for the emergency treatment of severe allergic reactions. You should keep this medicine with you at all times. How should I use this medicine? This medicine is for injection into the outer thigh. Your doctor or health manager urgent care will instruct you on the proper use of the device during an emergency. Read all directions carefully and make sure you understand them. Do not use more often than directed. Talk to your manager labor relations regarding the use of this medicine in children. Special care may be needed. This drug is commonly used in children. A special device is available for use in children. If you are giving this medicine to a young child, hold their leg firmly in place before and during the injection to prevent injury. What side effects may I notice from receiving this medicine? Side effects that you should report to your doctor or health manager urgent care as soon as possible: allergic reactions like skin rash, itching or hives, swelling of the face, lips, or tongue breathing problems chest pain fast, irregular heartbeat pain, tingling, numbness in the hands or feet pain, redness, or irritation at site where injected vomiting Side effects that usually do not require medical attention (report to your doctor or health manager urgent care if they continue or are bothersome): anxious dizziness dry mouth headache increased sweating nausea unusually weak or tired What may interact with this medicine? This medicine is only used during an emergency. Significant drug interactions are not likely during emergency use. What if I miss a dose? This does not apply. You should only use this medicine for an allergic reaction. Where should I keep my medicine? Keep out of the reach of children. Store at room temperature between 15 and 30 degrees C (59 and 86 degrees F). Protect from light and heat. The solution should be clear in color. If the solution is discolored or contains particles it must be replaced. Throw away any unused medicine after the expiration date. Ask your doctor or pharmacist about proper disposal of the injector if it is or has been used. Always replace your auto-injector before it expires. What should I tell my health care provider before I take this medicine? They need to know if you have any of the following conditions: diabetes heart disease high blood pressure lung or breathing disease, like asthma Parkinson's disease thyroid disease an unusual or allergic reaction to epinephrine, sulfites, other medicines, foods, dyes, or preservatives or trying to get breast-feeding What should I watch for while using this medicine? Keep this medicine ready for use in the case of a severe allergic reaction. Make sure that you have the phone number of your doctor or health manager urgent care and local hospital ready. Remember to check the expiration date of your medicine regularly. You may need to have additional units of this medicine with you at work, school, or other places. Talk to your doctor or health manager urgent care about your need for extra units. Some emergencies may require an additional dose. Check with your doctor or a health manager urgent care before using an extra dose. After use, go to the nearest hospital or call 911. Avoid physical activity. Make sure the treating health manager urgent care knows you have received an injection of this medicine. You will receive additional instructions on what to do during and after use of this medicine before a medical emergency occurs. NOTE:This sheet is a summary. It may not cover all possible information. If you have questions about this medicine, talk to your doctor, pharmacist, or health care provider. Copyright 2019 [employer] Insect Sting Allergy, Generalized You are having an allergic reaction to an insect sting. This may occur after a sting by a wasp, honeybee, yellow jacket, or other insect. This may cause an itchy rash and swelling in the face or other parts of the body. A more severe reaction may cause you to feel dizzy, faint, or have trouble breathing or swallowing. Other warning signs are listed below. Symptoms can include: Rash, hives, redness, welts, or blisters in areas other than the sting site Itching, burning, stinging, pain in areas other than the sting site Dry, flaky, cracking, scaly skin Swelling in areas other than the sting site Stomach pain or cramps More severe symptoms include: Swelling of the face or lips or drooling Trouble swallowing, feeling like your throat is closing Trouble breathing, wheezing Dizziness or a sudden decrease in blood pressure Hoarse voice or trouble speaking Severe nausea, vomiting, or diarrhea Feeling faint or lightheaded Rapid heart rate Home care Medicine The healthcare provider may prescribe medicines to relieve swelling, itching, and pain. Follow the provider s instructions when taking these medicines. If you had a severe reaction, the provider may prescribe an injectable epinephrine kit. Epinephrine will stop the progression of an allergic reaction. Before you leave the hospital, be sure that you understand when and how to use this medicine. Oral diphenhydramine is an idwb-fyn-kvtyujx antihistamine available at pharmacies and grocery stores. Unless a prescription antihistamine was given, diphenhydramine may be used to reduce itching if large areas of the skin are involved. It may make you sleepy, so be careful using it in the daytime or when going to school, working, or driving. Note: Don t use diphenhydramine if you have glaucoma or if you are a man with trouble urinating due to an enlarged prostate. There are other antihistamines that cause less drowsiness and are good choices for daytime use. Ask your pharmacist for suggestions. Don t use diphenhydramine cream on your skin. It can cause a further reaction in some people. Calamine lotion or oatmeal baths sometimes help with itching. You may use acetaminophen or ibuprofen to control pain, unless another pain medicine was prescribed. Note: If you have chronic liver or kidney disease or ever had a stomach ulcer or gastrointestinal bleeding, talk with your provider before using these medicines. General care Avoid tight clothing and things that heat up your skin (such as hot showers or baths, or direct sunlight). Heat makes the itching worse. An ice pack will relieve local areas of intense itching and redness. Apply 5 to 10 minutes. To make an ice pack, put ice cubes in a plastic bag that seals at the top. Wrap the bag in a clean, thin towel or cloth. Don t put ice directly on the skin. Ticks If you try to remove a tick, do the following: Use a set of fine tweezers and dedicated local truck driver the tick as close to the skin as is possible. Pull upwards, using even, steady pressure. Don t jerk or twist the tick. The tick s bodily fluids may contain infection-causing organisms. So don t squeeze, crush, or puncture the body of the tick. Don t use a smoldering match or cigarette, nail [place] citizen, petroleum jelly, liquid soap, or kerosene. They may irritate the tick. If any mouthparts of the tick remain in the skin, these can be removed with tweezers. If you can t remove the mouth (of a tick) easily with clean tweezers, leave it alone and let the skin heal. After the tick is removed, wash the bite area with rubbing alcohol, iodine, or soap and water. Put the tick in a sealed container and completely cover it with alcohol. Never try to kill or crush a tick with your hand or fingers. Stings Wasps, yellow jackets, and hornets don t leave a stinger behind. But if a honeybee stings you, a stinger may stay in your skin. The stinger of a honeybee releases a substance that will attract other bees to you. So try to move away from the nest immediately. Once you are away from the nest, then remove the stinger as quickly as possible by: Scraping the stinger out with the edge of a dull knife or plastic card (credit card). Don't use a tweezer or your fingers to remove the stinger since that may squeeze more toxin from the stinger. Wash the affected area with soap and warm water 2 to 3 times a day. Don't break a blister, if present. Next apply an ice pack for 5 to 10 minutes. To make an ice pack, put ice cubes in a plastic bag that seals at the top. Wrap the bag in a clean, thin towel or cloth. Don t put ice directly on the skin. Contact your healthcare provider and ask what can be used to help decrease the swelling and itching to the affected area. To prevent an infection, don't scratch the affected areas. Always check the sting area for signs of an infection: increased redness, swelling, or pain to the affected area. Preventing future reactions Future reactions could be worse than this one. So try to avoid situations where you might be stung: Don't walk in grass without shoes. Avoid wearing sandals. Don't leave food uncovered when eating outside. Sweet treats, watermelon, and ice cream attract insects. Don't drink from uncovered sweetened drinks in cans when outside. Insects are attracted to soda drink cans and sometimes crawl inside of them. Don't wear bright colored clothes with flowery prints and patterns when outside. Don t wear perfume when outside. Smell attracts insects. Wear long pants, long-sleeved shirts, socks, and work gloves when working outside. Be aware that honeybees nest in trees. Wasps and yellow jackets nest in the ground, trees or roof eaves. Avoid garbage cans when outside. Auto-injectable epinephrine If you are at high risk for another sting due to where you work or play, or if your reaction included dizziness, fainting or trouble breathing or swallowing, an auto-injectable epinephrine may be prescribed. If not, ask your healthcare provider for one and always carry it with you. Learn how to use the device. If you begin to feel the symptoms of another reaction in the future, use the auto-injectable epinephrine to inject yourself, and then call 911. Don't wait until symptoms become severe. Remember that the auto-injectable epinephrine is a rescue medicine only. You still need someone to take you to the hospital or call 911 after you have received the medicine. Follow-up care Follow up with your healthcare provider, or as advised if your symptoms do not continue to improve. Call 911 Call 911 if any of these occur: Trouble breathing or swallowing, wheezing Cool, moist, pale skin Hoarse voice or trouble speaking Confused Very drowsy or trouble waking up Fainting or loss of consciousness Rapid heart rate Low blood pressure or feeling dizzy or weak Feeling of doom Severe nausea, vomiting, or diarrhea Seizure Swelling in the face, eyelids, lips, mouth, throat or tongue Drooling When to seek medical advice Call your healthcare provider right away if any of the following occur: Spreading areas of itching, redness or swelling Headache, fever, chills, muscle or joint aching Increased pain or swelling Signs of infection of the affected area: oSpreading redness oIncrease in pain or swelling oFluid or colored drainage from the affected site 4336-4185 [employer]. [address] [place] [address]. All rights reserved. This information is not intended as a substitute for professional medical care. Always follow your healthcare professional's instructions. Additional Information VACCINATE! IT SAVES LIVES! Members of the community who have not yet received the COVID-19 vaccine and would like to receive it can visit one of [facility] vaccine clinics. There are many vaccine clinic locations within the [facility]. For locations and available times, please visit [email or web address]. It is important to note that some COVID mobile vaccine clinics are held outdoors and may be canceled in rainy or stormy conditions. To learn more about pediatric vaccinations (ages 5-11), we invite you to visit the [facility] webpage. [email or web address] To learn more about the COVID-19 vaccine, we invite you to visit the [facility] website for a list of frequently asked questions. [email or web address] [email or web address] [facility] Access Instructions: Stay connected with your healthcare team and access your personal medical information anytime with the [employer] Patient Portal. If you would like a full copy of your medical records please contact the [facility] Medical Records Department Sunday through Sunday between 8a.m. and 4:30p.m. Please follow the directions below to access the portal: 1.Access the email account you provided upon registration to the [facility].2.Look for an invitation email from [facility].3.Open the email and access the invitation link: Accept Invitation to [facility] [employer]4.Fill in the required law to create your account. Sign into [email or web address] with your username and password that you created in the above steps to stay up to date. You can then view a summary of results, a summary of your visits, and the ability to download your summaries to your computer or send the information securely to a physician. Remember that your healthcare information is confidential, so carefully consider who you will allow to register on the [facility] [employer] Patient Portal for access to your information. You can also access the [facility] [employer] Patient Portal on the [employer] adama. Simply click on Health Records under Health Data and then click on the [employer] logo. HOW TO SAFELY DISPOSE OF PRESCRIPTION MEDICATIONS Please use one of the following methods to safely dispose of your unused medications. 1.Use a drug disposal kit: the drug disposal pouch allows you to safely discard your old and unused drugs. Ask your nurse to give you one when you are discharged.2.Visit a local take-back location: Many local pharmacies and police departments have programs that collect old and unwanted prescription drugs. Call your local pharmacy or go to http://bit.ly/9E8Nn8s to find one close to you.3.Make use of household items: Use cat litter or old coffee grounds to dispose medications if other options are not available. Mix your drugs with these household products, seal them in an airtight container and throw it into the garbage. Call [facility]: [phone] to be sure your drugs can be disposed of in this way. Some medicines may require a different approach.4.Never flush your medications down the toilet. IF YOU HAVE BEEN PRESCRIBED AN OPIOIDS FOR PAIN If you have been prescribed an opioid (such as hydrocodone, oxycodone or morphine), it is critical to understand the possible side effects and risks of opioid pain medications. Even when taken as directed, opioids can have several side effects including: Tolerance, meaning you might need to take more of a medication for the same pain relief. Nausea, vomiting and/or constipation. Sleepiness, dizziness, dry mouth, confusion, depression or itching. Physical dependence, meaning you have withdrawal symptoms when a medication is stopped ? this can develop within a few days. KNOW YOUR RESPONSIBILITIES It is important to know exactly how much and how often to take the opioid pain medications you are prescribed. Never take opioids in higher amounts or more often than prescribed. Do not combine opioids with alcohol or other drugs that cause drowsiness, such as benzodiazepines, also known as benzos, including diazepam and alprazolam, muscle relaxants or sleep aids. Never sell or share prescription opioids. This is illegal. Store opioids in a secure place and out of reach of others (including children, family, friends and visitors). The last page(s) of this document has been signed and retained as a CHART COPY Signatures Patient Education Materials Epinephrine injection (Auto-injector) Allergic Reaction, Insect (General) Medication Leaflets epinephrine injection My discharge plan and instructions have been reviewed and explained to me and IVASILE MEGAN understand my current condition and have read and understand these discharge instructions. I have received a written copy of the plan/instructions. If I have questions, I am aware that I should contact my doctor. Patient/Professional Skater Signature: Date/Time: Relationship to Patient: ___ Witness Name/Signature: Date/Time: [facility] 01-25-2022 Hospital Discharge instructions Patient Education 01/25/2022 12:47:18 Epinephrine injection (Auto-injector) Epinephrine injection (Auto-injector) What is this medicine? EPINEPHRINE (ep i BRENDA rin) is used for the emergency treatment of severe allergic reactions. You should keep this medicine with you at all times. How should I use this medicine? This medicine is for injection into the outer thigh. Your doctor or health manager urgent care will instruct you on the proper use of the device during an emergency. Read all directions carefully and make sure you understand them. Do not use more often than directed. Talk to your manager labor relations regarding the use of this medicine in children. Special care may be needed. This drug is commonly used in children. A special device is available for use in children. If you are giving this medicine to a young child, hold their leg firmly in place before and during the injection to prevent injury. What side effects may I notice from receiving this medicine? Side effects that you should report to your doctor or health manager urgent care as soon as possible: allergic reactions like skin rash, itching or hives, swelling of the face, lips, or tongue breathing problems chest pain fast, irregular heartbeat pain, tingling, numbness in the hands or feet pain, redness, or irritation at site where injected vomiting Side effects that usually do not require medical attention (report to your doctor or health manager urgent care if they continue or are bothersome): anxious dizziness dry mouth headache increased sweating nausea unusually weak or tired What may interact with this medicine? This medicine is only used during an emergency. Significant drug interactions are not likely during emergency use. What if I miss a dose? This does not apply. You should only use this medicine for an allergic reaction. Where should I keep my medicine? Keep out of the reach of children. Store at room temperature between 15 and 30 degrees C (59 and 86 degrees F). Protect from light and heat. The solution should be clear in color. If the solution is discolored or contains particles it must be replaced. Throw away any unused medicine after the expiration date. Ask your doctor or pharmacist about proper disposal of the injector if it is or has been used. Always replace your auto-injector before it expires. What should I tell my health care provider before I take this medicine? They need to know if you have any of the following conditions: diabetes heart disease high blood pressure lung or breathing disease, like asthma Parkinson's disease thyroid disease an unusual or allergic reaction to epinephrine, sulfites, other medicines, foods, dyes, or preservatives or trying to get breast-feeding What should I watch for while using this medicine? Keep this medicine ready for use in the case of a severe allergic reaction. Make sure that you have the phone number of your doctor or health manager urgent care and local hospital ready. Remember to check the expiration date of your medicine regularly. You may need to have additional units of this medicine with you at work, school, or other places. Talk to your doctor or health manager urgent care about your need for extra units. Some emergencies may require an additional dose. Check with your doctor or a health manager urgent care before using an extra dose. After use, go to the nearest hospital or call 911. Avoid physical activity. Make sure the treating health manager urgent care knows you have received an injection of this medicine. You will receive additional instructions on what to do during and after use of this medicine before a medical emergency occurs. NOTE:This sheet is a summary. It may not cover all possible information. If you have questions about this medicine, talk to your doctor, pharmacist, or health care provider. Copyright 2019 [employer] 01/25/2022 12:47:07 Allergic Reaction, Insect (General) Insect Sting Allergy, Generalized You are having an allergic reaction to an insect sting. This may occur after a sting by a wasp, honeybee, yellow jacket, or other insect. This may cause an itchy rash and swelling in the face or other parts of the body. A more severe reaction may cause you to feel dizzy, faint, or have trouble breathing or swallowing. Other warning signs are listed below. Symptoms can include: Rash, hives, redness, welts, or blisters in areas other than the sting site Itching, burning, stinging, pain in areas other than the sting site Dry, flaky, cracking, scaly skin Swelling in areas other than the sting site Stomach pain or cramps More severe symptoms include: Swelling of the face or lips or drooling Trouble swallowing, feeling like your throat is closing Trouble breathing, wheezing Dizziness or a sudden decrease in blood pressure Hoarse voice or trouble speaking Severe nausea, vomiting, or diarrhea Feeling faint or lightheaded Rapid heart rate Home care Medicine The healthcare provider may prescribe medicines to relieve swelling, itching, and pain. Follow the provider s instructions when taking these medicines. If you had a severe reaction, the provider may prescribe an injectable epinephrine kit. Epinephrine will stop the progression of an allergic reaction. Before you leave the hospital, be sure that you understand when and how to use this medicine. Oral diphenhydramine is an gbjx-tyo-repymyz antihistamine available at pharmacies and grocery stores. Unless a prescription antihistamine was given, diphenhydramine may be used to reduce itching if large areas of the skin are involved. It may make you sleepy, so be careful using it in the daytime or when going to school, working, or driving. Note: Don t use diphenhydramine if you have glaucoma or if you are a man with trouble urinating due to an enlarged prostate. There are other antihistamines that cause less drowsiness and are good choices for daytime use. Ask your pharmacist for suggestions. Don t use diphenhydramine cream on your skin. It can cause a further reaction in some people. Calamine lotion or oatmeal baths sometimes help with itching. You may use acetaminophen or ibuprofen to control pain, unless another pain medicine was prescribed. Note: If you have chronic liver or kidney disease or ever had a stomach ulcer or gastrointestinal bleeding, talk with your provider before using these medicines. General care Avoid tight clothing and things that heat up your skin (such as hot showers or baths, or direct sunlight). Heat makes the itching worse. An ice pack will relieve local areas of intense itching and redness. Apply 5 to 10 minutes. To make an ice pack, put ice cubes in a plastic bag that seals at the top. Wrap the bag in a clean, thin towel or cloth. Don t put ice directly on the skin. Ticks If you try to remove a tick, do the following: Use a set of fine tweezers and dedicated local truck driver the tick as close to the skin as is possible. Pull upwards, using even, steady pressure. Don t jerk or twist the tick. The tick s bodily fluids may contain infection-causing organisms. So don t squeeze, crush, or puncture the body of the tick. Don t use a smoldering match or cigarette, nail [place] citizen, petroleum jelly, liquid soap, or kerosene. They may irritate the tick. If any mouthparts of the tick remain in the skin, these can be removed with tweezers. If you can t remove the mouth (of a tick) easily with clean tweezers, leave it alone and let the skin heal. After the tick is removed, wash the bite area with rubbing alcohol, iodine, or soap and water. Put the tick in a sealed container and completely cover it with alcohol. Never try to kill or crush a tick with your hand or fingers. Stings Wasps, yellow jackets, and hornets don t leave a stinger behind. But if a honeybee stings you, a stinger may stay in your skin. The stinger of a honeybee releases a substance that will attract other bees to you. So try to move away from the nest immediately. Once you are away from the nest, then remove the stinger as quickly as possible by: Scraping the stinger out with the edge of a dull knife or plastic card (credit card). Don't use a tweezer or your fingers to remove the stinger since that may squeeze more toxin from the stinger. Wash the affected area with soap and warm water 2 to 3 times a day. Don't break a blister, if present. Next apply an ice pack for 5 to 10 minutes. To make an ice pack, put ice cubes in a plastic bag that seals at the top. Wrap the bag in a clean, thin towel or cloth. Don t put ice directly on the skin. Contact your healthcare provider and ask what can be used to help decrease the swelling and itching to the affected area. To prevent an infection, don't scratch the affected areas. Always check the sting area for signs of an infection: increased redness, swelling, or pain to the affected area. Preventing future reactions Future reactions could be worse than this one. So try to avoid situations where you might be stung: Don't walk in grass without shoes. Avoid wearing sandals. Don't leave food uncovered when eating outside. Sweet treats, watermelon, and ice cream attract insects. Don't drink from uncovered sweetened drinks in cans when outside. Insects are attracted to soda drink cans and sometimes crawl inside of them. Don't wear bright colored clothes with flowery prints and patterns when outside. Don t wear perfume when outside. Smell attracts insects. Wear long pants, long-sleeved shirts, socks, and work gloves when working outside. Be aware that honeybees nest in trees. Wasps and yellow jackets nest in the ground, trees or roof eaves. Avoid garbage cans when outside. Auto-injectable epinephrine If you are at high risk for another sting due to where you work or play, or if your reaction included dizziness, fainting or trouble breathing or swallowing, an auto-injectable epinephrine may be prescribed. If not, ask your healthcare provider for one and always carry it with you. Learn how to use the device. If you begin to feel the symptoms of another reaction in the future, use the auto-injectable epinephrine to inject yourself, and then call 911. Don't wait until symptoms become severe. Remember that the auto-injectable epinephrine is a rescue medicine only. You still need someone to take you to the hospital or call 911 after you have received the medicine. Follow-up care Follow up with your healthcare provider, or as advised if your symptoms do not continue to improve. Call 911 Call 911 if any of these occur: Trouble breathing or swallowing, wheezing Cool, moist, pale skin Hoarse voice or trouble speaking Confused Very drowsy or trouble waking up Fainting or loss of consciousness Rapid heart rate Low blood pressure or feeling dizzy or weak Feeling of doom Severe nausea, vomiting, or diarrhea Seizure Swelling in the face, eyelids, lips, mouth, throat or tongue Drooling When to seek medical advice Call your healthcare provider right away if any of the following occur: Spreading areas of itching, redness or swelling Headache, fever, chills, muscle or joint aching Increased pain or swelling Signs of infection of the affected area: oSpreading redness oIncrease in pain or swelling oFluid or colored drainage from the affected site [id number] [employer]. [address] [place] [address]58. All rights reserved. This information is not intended as a substitute for professional medical care. Always follow your healthcare professional's instructions. Follow Up Care 01/25/2022 12:28:35 With:JUJU BONILLA BUTTONHOLE FACER-COORDINATOR OF HEALTH SERVICES Address: [address] [facility] [place] [address]- [phone] When:2-4 days [facility] 12-09-2021 Miscellaneous Notes December 09, 2021 PID: [id number] Joleen Yepez [address] [place] [address] Dear Ms. Yepez, We are pleased to inform you that the results of your recent breast imaging exam on 12/09/2021 are normal. Early detection of cancer is very important. We also understand recommendations regarding breast cancer screening are controversial. Please discuss with your primary care provider which strategy is best for you and whether a mammogram is right for you. Your imaging studies and report will be kept on file at [facility] as part of your permanent medical record and are available for your continuing care. Thank you for allowing us to help in meeting your health care needs. Sincerely, Dr. Moore Interpreting Radiologist [facility] (Normal over 40) documented in this encounter [facility] 12-09-2021 Note HNO ID: [id number] Author: RT Mathew(Beny) Service: ? Author Type: Technologist Type: Progress Notes Filed: 12/09/2021 10:48 AM Note Text: Radiology Service Progress Note PATIENT NAME: Joleen Yepez DATE OF SERVICE: December 09, 2021 TIME: 10:48 AM PATIENT IDENTITY VERIFICATION COMPLETED USING TWO (2) IDENTIFIERS: Name and Date of confirmed by patient verbally. FALL SCREENING: Has the patient had 2 falls in the last year or 1 fall with injury or currently using an Ambulatory Assistive Device (Walker, Cane, Wheelchair, Crutches, etc.)? No PATIENT GENDER DATA: Female. status: : No status: NO. PATIENT RELEVANT IMPLANT DATA REVIEWED: Not Applicable RADIOLOGY DEPARTMENT: Mammography PERIPHERAL IV DATA: Not applicable SIGNED BY: RT Mathew(R) December 09, 2021 10:48 AM [facility] 12-09-2021 History of Present illness Narrative Radiology Service Progress Note PATIENT NAME: Joleen Yepez DATE OF SERVICE: December 09, 2021 TIME: 10:48 AM PATIENT IDENTITY VERIFICATION COMPLETED USING TWO (2) IDENTIFIERS: Name and Date of confirmed by patient verbally. FALL SCREENING: Has the patient had 2 falls in the last year or 1 fall with injury or currently using an Ambulatory Assistive Device (Walker, Cane, Wheelchair, Crutches, etc.)? No PATIENT GENDER DATA: Female. status: : No status: NO. PATIENT RELEVANT IMPLANT DATA REVIEWED: Not Applicable RADIOLOGY DEPARTMENT: Mammography PERIPHERAL IV DATA: Not applicable SIGNED BY: RT Mathew(R) December 09, 2021 10:48 AM documented in this encounter [facility] 02-08-2021 Note HNO ID: [id number] Author: Mega Garvey MD Service: ? Author Type: Physician Type: Progress Notes Filed: 02/13/2021 11:19 AM Note Text: HISTORY AND PHYSICAL - BREAST COMPLAINT Joleen Yepez 1975 REFERRING PHYSICIAN: Mega Garvey MD CHIEF COMPLAINT: Microcalcifications of the breast (primary encounter diagnosis) HPI: The patient is a 45 year old female with a complaint of an abnormal mammogram. The patient had a mammogram without ultrasound on 02/03/21 which demonstrated BI-RADS Category 3 mammographic microcalcifications: The patient denies a history of breast masses. She does perform a self breast exam routinely. She notes no skin changes. She denies nipple discharge. She notes no axillary masses. She notes no family history of breast problems. She notes no significant breast trauma or breast difficulties in the past. The patient is being seen by me today at the request of Dr. De Souza primary care provider on file. for my opinion and advice regarding Microcalcifications of the breast (primary encounter diagnosis). PAST MEDICAL HISTORY Diagnosis Date - NEGATIVE MEDICAL HISTORY PAST SURGICAL HISTORY Procedure Laterality Date - SECTION HX 2005 x2 - CORRECTION OF BUNION Left 1992 - HYSTERECTOMY HX 2006 - KNEE SURGERY HX Left 2015 - REDUCTION OF LARGE BREAST Bilateral 1998 - WRIST SURGERY HX Bilateral 2019 tendonitis Current Outpatient Medications Medication Sig Dispense Refill - escitalopram oxalate (LEXAPRO) 10 mg tablet Take 10 mg by mouth once daily. - ALPRAZolam (XANAX) 0.5 mg tablet TAKE 2 TABLETS BY MOUTH BEFORE BED. MAY TAKE 2 MORE TABS DURING DAYTIME SPACED BY 4 HRS IF NEEDED - DRYSOL 20 % external solution USE 1 APPLICATION DAILY FOR 2 3 DAYS UNTIL THE SWEATING STOPS THEN USE 1 2 TIMES PER WEEK AT BEDTIME No current facility-administered medications for this visit. ALLERGIES: Patient has no known allergies. PERSONAL HISTORY: Social History Tobacco Use - Smoking status: Former Smoker Packs/day: 0.50 Years: 15.00 Pack years: 7.50 Quit date: 08/02/2017 Years since quittin.5 - Smokeless tobacco: Never Used Substance Use Topics - Alcohol use: Not on file - Drug use: Not on file FAMILY HISTORY: FAMILY HISTORY Problem Relation Age of Onset - Cancer Father - Cancer Paternal Grandmother - Cancer Paternal Grandfather REVIEW OF SYMPTOMS: The review of systems data was entered by the nurse and reviewed by ne Nursing Notes: Deborah Aguirre LPN 02/08/2021 8:24 AM Signed REVIEW OF SYSTEMS: General: The patient denies fatigue, denies weight loss, denies weight gain, denies feeling hot, and denies feelings of cold. Eyes: The patient denies glaucoma, denies eye injury/surgery, does not wear glasses or contacts. Ear/Nose/Throat: The patient denies allergies, denies hayfever, denies ear infections, and denies bloody noses. Cardiovascular: The patient denies chest pain, denies heart disease, denies high blood pressure,denies cardiac stent, denies prior heart attack, denies irregular heart beat, denies high cholesterol, denies poor circulation, denies heart failure, other cardiac issues, denies claudication, denies cold feet, denies peripheral arterial stent. Respiratory: The patient denies tuberculosis, denies pneumonia, denies frequent cough, denies pulmonary embolism, denies shortness of breath, and denies coughing up blood. Gastrointestinal: The patient denies difficulty swallowing, denies acid reflux, denies ulcers, denies vomiting, denies jaundice/hepatitis, denies gallbladder problems, denies black or tarry stools, denies hemorrhoids, denies bleeding from rectum, denies diverticulitis, denies constipation, denies diarrhea, denies loss of stool control, and denies hernias. Kidney/Bladder: The patient denies kidney stones, denies urine infections, and denies bloody urine. Skin: The patient denies a history of skin cancer, denies bleeding/changing moles, and denies a history of skin rash. Neurologic: The patient denies a history of epilepsy/convulsions, denies headaches, denies head/spinal injuries, and denies stroke/TIA. Psychiatric: The patient denies psychiatric medications, denies depression, and denies voices, denies substance abuse. Endocrine: The patient denies thyroid disorders, denies diabetes, and denies hormonal problems. Hematologic: The patient denies a history of bruising, denies bleeding, and denies anemia, denies blood clots. Infections: The patient denies a history of measles and mumps, denies rheumatic fever, and denies sexually transmitted diseases. Musculoskeletal: The patient denies back pain/injury, denies back problems, denies sciatica, denies knee/foot trouble, denies arthritis, or denies gout. When was patient's last Mammogram screening? 02/03/2021 Last Colonoscopy: None Deborah Aguirre LPN PHYSICAL EXAMINATION: General: The patient is 45 year old female, well (more content not included)... [facility] 06-13-2019 History of Present illness Narrative Pt sitting up having PO fluids and tolerating well. PATIENT RECEIVED FROM OR VIA CART. SPONT RESP. WITH CHEMICAL DETECTION EXPERT IN ATTENDANCE. PLACED ON MONITOR. MONITOR ALARMS ON IN PACU. Timeout performed prior to regional block procedure. Dr Villalobos in attendance. documented in this encounter [facility] Work Phone: Evaluation + Plan note No data available for this section [facility] documented in this encounter [facility] Work Phone: Hospital Discharge instructions* Instructions* Savannah Solitraio PA - 06/13/2019 Keep operative splint/dressing on, clean, and dry until follow up appointment in 1-2 weeks. You received a local injection with lidocaine and epinephrine today. It is normal for your finger tip to look pale or white for up to 10 hours after surgery but if this persists past the 10 hours please call the office immediately. Elevate and Ice for pain control. Encourage range of motion of long finger, ring finger, little finger, thumb, and elbow in splint/dressing with goal of touching finger tips to splint material/dressing in palm by initial post op appointment. Non weight bearing in operative extremity. 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 Advance Directives and Living Will Power of Slope Hoist Operator Latest Code Status on File Code Status Date Activated Date Inactivated Comments Full Code 06/13/2019 6:22 AM Summary Purpose Family History No Family History Records FoundNo Family History Records FoundNo Family History Records Found No data available for this section Additional Source Comments Source Comments (unrecognize d section and content) In the event this informatio n is protected by the Federal Confidentiality of Alcohol and Drug Abuse Patient Records regulations: The Federal rules restrict any use of the information to criminally investigate or prosecute any alcohol or drug abuse patient.[facility] the event this information is protected by the Federal Confidentiality of Alcohol and Drug Abuse Patient Records regulations: The Federal rules restrict any use of the information to criminally investigate or prosecute any alcohol or drug abuse patient.[facility] the event this information is protected by the Federal Confidentiality of Alcohol and Drug Abuse Patient Records regulations: The Federal rules restrict any use of the information to criminally investigate or prosecute any alcohol or drug abuse patient.[facility] Care Teams (unrecognized sec tion and content) Care Team Personnel Name: ANATOLIY HERNÁNDEZ PA-C Member Role: Primary Care Physician Address: Address: [address] [place] [address] Care Team Related Persons Name: JACKSON VIGIL JR Address: [address] [phone] Address: Temporary [address] [place] [phone] Name: VAL IVGIL Address: [address] [phone] Address: Temporary [address] [place] [phone] Name: TORRES VIGIL Trimming Machine Operator Relationship Specialty Start Date End Date Anatoliy Hernández PA-C PCP - General Family Practice 02/08/21 Trimming Machine Operator Relationship Specialty Start Date End Date Anatoliy Hernández PA-C PCP - General Family Practice 02/08/21 INFORMATION SOURCE (unrecogn ized section and content) DATE CREATED AUTHOR AUTHOR'S ORGANIZ ATFORMERLY [facility] 04/12/2022 [facility] DATE CREATED AUTHOR AUTHOR'S ORGANIZ ATION 06/07/2023 [facility] ([place]) Care Team (unrecognized sect ion and content) Care Team Personnel Name: JUJU BONILLA SATHYA-COORDINATOR OF HEALTH SERVICES Position: P4 Advanced Practice Nurse Med Service: Employed Provider Member Role: Primary Care Physician Address: Address: [address] [place] [address]- [place] Care Team Related Persons Name: JACKSON VIGIL JR Address: Home [address] [place] [phone] Address: Temporary [address] [place] [phone] Name: VAL VIGIL Address: Home [address] [place] [phone] Address: Temporary [address] [place] [phone] Name: TORRES VIGIL FOR RECORDS PERTAINING TO PATIENTS WHO ARE OR HAVE BEEN ENROLLED IN A CHEMICAL DEPENDENCY/SUBSTANCEABUSE PROGRAM, SOME INFORMATION MAY BE OMITTED. This clinical summary was aggregated from multiple sources. Caution should be exercised in using it in the provision of clinical care. This summary normalizes information from multiple sources, and as a consequence, information in this document may materially change the coding, format and clinical context of patient data. In addition, data may be omitted in some cases. CLINICAL DECISIONS SHOULD BE BASED ON THE PRIMARY CLINICAL RECORDS. [facility] [employer] [facility]. provides no warranty or guarantee of the accuracy or completeness of information in this document.
== END | disposition home or self-care (01) ==
PROVIDERS: PCP Family Medicine; Referring Provider Family Medicine; Visit Provider Family Medicine
DX: R10.11 Right upper quadrant pain (principal)
CPT/HCPCS: 76705

== ENCOUNTER 2023-08-20 09:05 | Day surgery (SDC) | payer OTHER, SELFPAY ==
[2023-08-20] VITALS (7 sets, daily range): BP systolic 101–130; BP diastolic 61–76; PULSE 59–80; RESP 16; TEMP 36.1–36.9; O2SAT 98–100; BMI 28.0
--- NOTE | 2023-08-20 | GASB_PTH ---
PATIENT: JOLEEN BURNETTE LOC: EN U#:[id number] AGE/SX: 47/F ROOM: RE08/20/[address]: Dr. Chelsy Peck MD : 1975 BED: DIS: 08/20/2023 SPEC #: [id number] RECD: 08/20/23 12:55 STATUS: DON REQ #: [id number] RICK: 08/20/23 00:[address]: Chelsy Peck DEPT: SURGICAL PATHOLOGY RECD BY: Bryan Jackson ENTERED: 08/20/23 12:56 SP TYPE: Gastric Bx OTHR DR: Sloane Hernández PA-C Tissues: Gastric mucous membrane Procedures: Special Stain Group II Surgery Specimen Level IV Alcian Blue/PAS (control) HEADER OPERATION: EGD biopsy PRE-OP DIAGNOSIS: Abdominal bloating, Burping, Epigastric abdominal pain, Left upper quadrant abdominal pain, Right upper quadrant abdominal pain TISSUE SUBMITTED: Gastric antrum biopsy MICROSCOPIC DIAGNOSIS Gastric antrum, biopsy: A fragment of gastric mucosa with mild chronic inflammation and minimal acute inflammation. Focal intestinal metaplasia (goblet cell metaplasia). See comment. Dev 08/21/2023 COMMENT Inflammatory infiltrates consist of lymphocytes, eosinophils and a few neutrophils. Alcian blue/PAS stain with matched control is used in the evaluation of the specimen. The results of immunohistochemistry for Helicobacter pylori will be reported separately ([id number]). MICROSCOPIC DESCRIPTION Slides are reviewed. GROSS DESCRIPTION Received in fixative is one container labeled with the patient's name and designated Gastric antrum biopsy. The specimen consists of one irregular fragment of light salvador soft tissue that measures 0.3 x 0.3 x 0.1 cm. The specimen is totally submitted in one cassette. Dev 08/20/23 TC:2 CPT: 47911,8313
--- NOTE | 2023-08-20 09:41 | PCM.HP.BLA ---
History and Physical Date of Admission: 08/20/23 Date of Service: 08/10/23 MR#: [id number] Acct: [id number] Name: JOLEEN BURNETTE Rep #: [id number] : 1975 Provider: Dr. Chelsy Peck MD Age/Sex: 47/F Location: [facility] Status: Signed Intake Vital Signs 05/07/2310:06 08/10/2407:31 Height 5 ft 4 in 5 ft 4 in Weight: 164 lb BMI 28.1 BP 138/78 H Blood Pressure Location Rt brachial Position Sitting Respiration 17 Pulse 81 Pulse Source Monitor Temp 97.7 F L Temp Source Temporal Pulse Oximetry (%) 100 Oxygen Delivery Method room air Intake Visit Reasons: Abdominal Pain Chief Complaint: abdominal pain Is patient in pain?: Yes Allergies bee venom protein (honey bee) Allergy (Severe, Verified 08/10/23 08:32) Anaphylaxishydrocodone bitartrate [From Vicodin] Adverse Reaction (Verified 08/10/23 08:32) Vomiting Medications aluminum chloride 20 % topical solution (Drysol Dab-O-Matic) 1 applic topical QWEEK PRN excessive sweating 04/30/23 [History Confirmed 08/10/23] epinephrine 0.3 mg/0.3 mL injection, auto-injector 0.3 mg IM ONCE PRN anaphylaxis 04/30/23 [History Confirmed 08/10/23] testosterone 10 mg/0.5 gram/actuation transdermal gel pump 1 pump transdermal QAM 04/30/23 [History Confirmed 08/10/23] cholecalciferol (vitamin D3) 50 mcg (2,000 unit) capsule 4,000 unit PO DAILY 08/10/23 [History Confirmed 08/10/23] pantoprazole 40 mg tablet,delayed release (Protonix) 40 mg PO DAILY 08/10/23 [History Confirmed 08/10/23] sucralfate 1 gram tablet 1 g PO QACHS #56 tabs 08/10/23 [Rx Confirmed 08/10/23] [facility] Medical History (Updated 08/10/23 @ 12:[address] Chelsy Peck MD) Acid reflux Anxiety and depression Depression Former smoker Insomnia, unspecified Thyroid disease Surgical History History of release of tendon Hx of abdominal hysterectomy Hx of breast reduction, elective Hx of section Hx of left knee surgery Family History (Updated 08/10/23 @ 08:30 by Allyson Castro) Father CancerMother Hypertension Social History current occupational status: employed Smoking Status: Former smoker alcohol intake: current alcohol intake frequency: holidays/special occasions only HPI HPI HPI: 47-year-old female presents due to abdominal bloating and pain. Patient states that she had a gallbladder ultrasound which showed no stones, normal wall, no pericholecystic fluid, normal common bile duct. Patient also had a HIDA scan at [place] which read 43% ejection fraction at 1 hour. Patient complains of abdominal bloating and burping daily and states it happened even before she ever eats or right as she is eating. Patient can also get pain daily in the right upper quadrant epigastric or left upper quadrant typically a the pain last for few hours. Patient does have bowel movements about every 3 days does occasionally take a laxative as needed. 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 ROS General General: Yes fatigue; No weight change, appetite, colon cancer, breast cancer or weakness HEENT HEENT: No difficulty swallowing, eye injury, eye surgery, swollen glands or hoarseness Endo Endocrine: No thyroid disease, diabetes mellitus, thyroid cancer, Hair loss, heat intolerance or cold intolerance Skin Skin: No rash or changing moles Musc Musculoskeletal: No back problems, arthritis, rheumatoid arthritis, gout or joint pain Cardio Cardiovascular: No murmur, pacemaker, heart disease, atrial fibrillation, high blood pressure, heart attack, heart stent, palpitations, shortness of breat with exertion or chest pain Psych Psychiatric: No depression, anxiety or hearing voices Resp Respiratory: No shortness of breath, No sleep apnea, No cough, No COPD, No asthma, No emphysema and No wheezing Gastro Gastrointestinal: No abdominal pain, No nausea or vomiting, No diarrhea, Yes constipation, No blood in stool, No acid reflux, No hemorrhoids, No ulcers, Yes gallbladder problem and No black,tarry stools Ron Hematologic: No blood thinners, No blood disorders, No bleeding, No anemia and No blood clots Neuro Neurologic: No system reviewed and no additional complaints, except as documented, No as per HPI, No abnormal gait, No abnormal hearing, No abnormal movements, No abnormal speech, No behavioral changes, No burning sensations, No confusion, No convulsions, No disequilibrium, No dizziness, No localized weakness, No frequent falls, No headache(s), No lack of coordination, No loss of vision, No memory loss, No numbness, No other visual disturbances, No radicular pain, No restless legs, No sensory deficit, No syncope, No tingling, No tremor(s), No weakness and No other Exam Const General: cooperative, healthy appearing, comfortable and no acute distress [facility] Head: normocephalic and atraumatic Neck Neck: supple Resp Effort & Inspection: normal respiratory effort Cardio Rate: regular rate GI Inspection: non-distended Palpation: soft, no hernias and tender (More tender than the upper abdomen) in the epigastrum, in the LLQ, in the RLQ, in the LUQ and in the RUQ; with no rebound tenderness Skin General: no rashes or lesions noted Neuro General: CN's II-XI intact bilaterally Extrem General: normal to inspection Psych Mental Status: mental status grossly normal Attitude: cooperative Assessment and Plan Assessment and Plan (1) Abdominal bloating: Status: Acute (2) Burping: Status: Acute (3) Epigastric abdominal pain: Status: Acute (4) LUQ abdominal pain: Status: Acute (5) Right upper quadrant abdominal pain: Status: Acute Medications: New sucralfate Take an hour before meals and at bedtime 1 g PO QACHS 56 tabs 0RF Plan Patient is agreeable to try the Carafate with the Protonix 40 mg p.o. daily that she is already on. Discussed with patient her symptoms of abdominal bloating and epigastric/right upper quadrant/left upper quadrant pain is more consistent with gastric etiology than gallbladder. However we will plan to look into the HIDA scan and is said 43% at an hour typically I see this at 20 or 30 minutes unsure what the standard is and will double check. On exam patient did have small amount of tenderness in the lower abdomen unsure of the this causes patient did recently have a colonoscopy which did not show anything suspicious for encourage patient to take laxatives so she goes least every 2 days. I have discussed the above with the patient. I have offered the patient esophagogastroduodenoscopy for evaluation. I have explained the risks/benefits of the procedure and described the procedure. I have discussed the risks with the patient, including but not limited to: infection, bleeding, perforation of the GI tract requiring emergency surgery, inability to complete the procedure, injury to any internal organs, complications of anesthesia, etc. - the patient understands and agrees to proceed. I have answered all the patient's questions to the patient's satisfaction and the patient has no further questions. Chelsy Peck M.D. Pager: [phone] [facility] [address] [place] [address], [address] [place] [address] Office: [phone] Coding Level of Care Code Off vis,est,level 3 Diagnoses Abdominal bloating R14.0 Burping R14.2 Epigastric abdominal pain R10.13 LUQ abdominal pain R10.12 Right upper quadrant abdominal pain R10.11 08/10/23 1224 <Electronically signed by Chelsy Peck MD> Date Chelsy Peck MD
[2023-08-20] MEDS: Lactated Ringers 1,000 ML 15 ML IV (09:56)
--- NOTE | 2023-08-20 10:30 | IMM_PTH ---
PATIENT: JOLEEN BURNETTE LOC: EN U#:[id number] AGE/SX: 47/F ROOM: RE08/20/[address]: Dr. Chelsy Peck MD : 1975 BED: DIS: 08/20/2023 SPEC #: [id number] RECD: 08/20/23 13:03 STATUS: DON REQ #: [id number] RICK: 08/20/23 10:[address]: Chelsy Peck DEPT: IMMUNOHISTOCHEMISTRY RECD BY: Donald Tolentino ENTERED: 08/20/23 13:04 SP TYPE: IMMUNO OTHR DR: Sloane Hernández PA-C Tissues: Stomach, NOS Procedures: H Pylori (initial) PHYSICIAN & INSTITUTION [place] [id number] SPECIMEN INFORMATION: Tissue Source: Gastric antrum Clinical Info: Abdominal bloating, Burping, Epigastric abdominal pain, Left upper quadrant abdominal pain, Right upper quadrant abdominal pain Specimen Number: [id number] CPT code: 16732 METHODOLOGY: Deparaffinized sections of prefer/formalin-fixed tissue or PAP/DQ stained slides are incubated with monoclonal/polyclonal antibodies/oligonucleotide probes. Localization is made via biotin free immunoperoxidase method. Appropriate controls are performed and reacted as expected. Results on target cell population are indicated in the following table: RESULTS: ANTIBODY / CLONE RESULT H Pylori (polyclonal) negative These tests were developed and their performance characteristics determined by [facility]. They may not have been cleared or approved by the [place]. Food and Drug Administration. The FDA has determined that such clearance or approval is not necessary. The above immunohistochemical/dualISH markers are ordered and reviewed by the Pathologist. INTERPRETATION: Gastric antrum, biopsy: Negative for Helicobacter pylori organisms. SAULO/ 08/21/23
--- NOTE | 2023-08-20 10:39 | OP.EGD_ITS ---
Patient Name: Rehana Yepez Procedure Date: 08/20/2023 10:24 AM Date of : 1975 Age: 47 Procedure: Upper GI endoscopy Indications: Epigastric abdominal pain, Abdominal pain in the right upper quadrant, Abdominal pain in the left upper quadrant, Abdominal bloating Providers: Chelsy Peck MD Referring MD: Sloane Hernández Medicines: Monitored Anesthesia Care Patient Profile: This is a 47 year old female. Complications: No immediate complications. Procedure: Pre-Anesthesia Assessment: - Prior to the procedure, a History and Physical was performed, and patient medications and allergies were reviewed. The patient's tolerance of previous anesthesia was also reviewed. The risks and benefits of the procedure and the sedation options and risks were discussed with the patient. All questions were answered, and informed consent was obtained. Prior Anticoagulants: The patient has taken no anticoagulant or antiplatelet agents. ASA Grade Assessment: Per anesthesia. After reviewing the risks and benefits, the patient was deemed in satisfactory condition to undergo the procedure. After obtaining informed consent, the endoscope was passed under direct vision. Throughout the procedure, the patient's blood pressure, pulse, and oxygen saturations were monitored continuously. The gastroscope was introduced through the mouth, and advanced to the second part of duodenum. The upper GI endoscopy was accomplished without difficulty. The patient tolerated the procedure well. Scope In: 10:31:46 AM Scope Out: 10:34:36 AM Total Procedure Duration Time 0 hours 2 minutes 50 seconds Findings: The Z-line was variable. The examined duodenum was normal. The cardia and gastric fundus were normal on retroflexion. Mildly erythematous mucosa without bleeding was found in the gastric antrum. Biopsies were taken with a cold forceps for histology. Biopsies were taken with a cold forceps for Helicobacter pylori cultures. No gross lesions were noted in the entire esophagus. Impression: - Z-line variable. - Normal examined duodenum. - Erythematous mucosa in the antrum. Biopsied. - No gross lesions in the entire esophagus. Recommendation: - Await pathology results. - Discharge patient to home. - Resume previous diet. - Continue present medications. Procedure Code(s): --- Professional --- 85734, Esophagogastroduodenoscopy, flexible, transoral; with biopsy, single or multiple Diagnosis Code(s): --- Professional --- K22.89, Other specified disease of esophagus K31.89, Other diseases of stomach and duodenum R10.13, Epigastric pain R10.11, Right upper quadrant pain R10.12, Left upper quadrant pain R14.0, Abdominal distension (gaseous) CPT copyright 2021 [employer]. All rights reserved. The codes documented in this report are preliminary and upon social work professor review may be revised to meet current compliance requirements. MD Chelsy Bahena MD 08/20/2023 10:39:41 AM This report has been signed electronically. Number of Addenda: 0 Note Initiated On: 08/20/2023 10:24 AM
--- NOTE | 2023-08-20 10:40 | OP.CCLET_ITS ---
08/20/2023 [facility] Re : Upper GI endoscopy procedure for Rehana Hernández This procedure was performed on Sunday, August 20, 2023. My impressions and recommendations are as follows: Impressions : - Z-line variable. - Normal examined duodenum. - Erythematous mucosa in the antrum. Biopsied. - No gross lesions in the entire esophagus. Recommendations : - Await pathology results. - Discharge patient to home. - Resume previous diet. - Continue present medications. My findings are described in the full procedure note, which is enclosed. If I can be of further assistance, please feel free to contact me at Doctor phone number(s): , Work: . Sincerely, MD Chelsy Bahena MD 08/20/2023 10:39:41 AM This report has been signed electronically.
== END 2023-08-20 11:29 | disposition home or self-care (01) ==
LOC: EN 09:06 → AC 09:10
PROVIDERS: PCP Family Medicine; Referring Provider Family Medicine; Visit Provider Surgery
PROC: 0DJ08ZZ Inspection of Upper Intestinal Tract, Via Natural or Artificial Opening Endoscopic (ICD-10-PCS; CPT 43235; principal; 2023-08-20 10:25)
DX: K31.A11 Gastric intestinal metaplasia without dysplasia, involving the antrum (principal); Z87.891 Personal history of nicotine dependence; Z79.899 Other long term (current) drug therapy; K29.50 Unspecified chronic gastritis without bleeding; K21.9 Gastro-esophageal reflux disease without esophagitis
CPT/HCPCS: 43239; 88305; 88313; 88342; J7120; J2405

== ENCOUNTER → 2025-01-07 | Outpatient (CLI) | payer OTHER, SELFPAY | END | disposition home or self-care (01) | LOC: LABSPEC 17:14 | PROVIDERS: PCP Family Medicine; Visit Provider Family Medicine | DX: K14.6 Glossodynia (principal) | CPT/HCPCS: 87070; 87205 ==